=== PATIENT | male | born 1970 | race Two or more races ===

== ENCOUNTER 2020-09-30 14:11 | Emergency (ER) | payer BC ==
[~2020-09-30] VITALS: Ht 170.2 cm; Wt 81.6 kg
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
[2020-09-30] MEDS ORDERED: NEOMY SULF/BACITRAC ZN/POLY 15 GM TUBE TP SCH (16:30)
[2020-09-30] MEDS ORDERED: TDAP [DIPH/PERTUSSIS/TET] 0.5 ML VIAL IM ONE ×2 (16:30→16:52)
--- NOTE | 2020-09-30 17:03 | NUR ---
Patient discharged to home in stable condition. Written and verbal after care instructions given. Patient verbalizes understanding of instruction.
[2020-09-30 17:04] VITALS: BP 141/90
== END 2020-09-30 17:04 | disposition home or self-care (01) ==
LOC: ER 14:18
DX: S42.001A Fracture of unspecified part of right clavicle, initial encounter for closed fracture (principal); S00.83XA Contusion of other part of head, initial encounter; S00.31XA Abrasion of nose, initial encounter; S50.311A Abrasion of right elbow, initial encounter; E78.5 Hyperlipidemia, unspecified; Z60.2 Problems related to living alone; V19.88XA Pedal cyclist (driver) (passenger) injured in other specified transport accidents, initial encounter; Y93.89 Activity, other specified; Y92.488 Other paved roadways as the place of occurrence of the external cause; Y99.8 Other external cause status
CPT/HCPCS: 70160; 71045; 73000; 90471; 90715; 99284; A6403